=== PATIENT | female | born 1985 | race Caucasian/White ===

== ENCOUNTER 2016-12-06 17:19 | Emergency (ER) | payer OTHER ==
[~2016-12-06] VITALS: Ht 165.1 cm; Wt 96.0 kg
[~2016-12-06 17:19] MED LIST: ACET-2158 PO; PREN1TAB17 PO
[2016-12-06 17:21] VITALS: Ht 165.1 cm; Wt 96.0 kg
[2016-12-06] MEDS ORDERED: KETOROLAC 60 MG INJ IM STA (19:18)
[2016-12-06] MEDS ORDERED: ONDANSETRON 4 MG INJ ZFS STA (19:18)
[2016-12-06] MEDS ORDERED: DIPHENHYDRAMINE 50 MG INJ ZFS STA (19:18)
[2016-12-06 19:44] LABS: URINE BLOOD (Dip) POC Trace-lysed (NEGATIVE)
--- NOTE | 2016-12-06 21:25 | ERD ---
ER Documentation Chief Complaint Date/Time DATE: 12/06/16 TIME: 21:24 Chief Complaint DIZZINESS , RT SIDE HEADCAHE X 3 DAYS HPI This pleasant 31-year-old female presents with headache 3 days. Patient reports her head feels tingly, pain is on the right side, denies vision change, nausea, vomiting, photosensitivity, history of hypertension. Patient states she has had migraines in the past but this feels different. Patient reports she has had intermittent dizziness, denies any injury, sinus congestion, or change in vision. ROS All systems reviewed and are negative except as per history of present illness. Medications Home Meds Active Scripts Ibuprofen* (Motrin*) 400 Mg Tab, 400 MG PO Q6, #30 TAB Prov:LESLIEADITIBOSTON 12/06/16 Acetaminophen (TYLENOL 325 MG TAB) 325 Mg Tab, 650 MG PO Q4H Y for ELEVATED TEMPERATURE, #30 TAB Prov:FLORESITA WILEY MD 03/27/14 Reported Medications Vit-Iron Fumarate-FA ( Tablet) 1 Each Tablet, 1 TAB PO DAILY, TAB 03/23/14 Allergies Allergies: Coded Allergies: No Known Allergies (Verified Allergy, Unknown, 03/23/14) PMhx/Soc Medical and Surgical Hx: pt denies Medical Hx History of Surgery: Yes (APPENDECTOMY ) Anesthesia Reaction: No Hx Alcohol Use: No Hx Substance Use: No Hx Tobacco Use: No Smoking Status: Never smoker Physical Exam Vitals Vitals stable, triage notes reviewed Physical Exam Const: No acute distress Head: Atraumatic Eyes: Normal Conjunctiva PERRLA, EOMI ENT: Bilateral tympanic membranes translucent, auditory canals are clear, nasal mucosa moist, pharynx pink. Neck: Full range of motion. Resp: Chest rise and fall symmetrically, clear to auscultation bilaterally no respiratory Cardio: Regular rate and rhythm, no murmurs, S1-S2, no S3-S4 Abd: Skin: Back: Ext: Neuro: Alert and oriented Face: EOMI, face and pharynx with normal sensation and function Motor: Normal strength throughout Sensation: Normal sensation throughout Speech: Normal Cerebel: Normal coordination Normal gait Normal finger to nose DTR: 2+ and symmetric upper/lower extremities Psych: Normal Mood and Affect Results 24 hrs Laboratory Tests Test 12/06/16 19:45 Bedside Urine pH (LAB) 6.0 Bedside Urine Protein (LAB) Negative Bedside Urine Glucose (UA) Negative Bedside Urine Ketones (LAB) Negative Bedside Urine Blood Trace-lysed Bedside Urine Nitrite (LAB) Negative Bedside Urine Leukocyte Esterase (L Trace Current Medications Medications (Trade) Dose Ordered Sig/Nguyen Route PRN Reason Start Time Stop Time Status Last Admin Dose Admin Ondansetron HCl (Zofran Inj) 4 mg ONCE STAT ZFS 12/06/16 19:18 12/06/16 19:22 DC 12/06/16 19:27 Ketorolac Tromethamine (Toradol) 15 mg ONCE STAT IM 12/06/16 19:18 12/06/16 19:22 DC 12/06/16 19:27 Diphenhydramine HCl (Benadryl) 25 mg ONCE STAT ZFS 12/06/16 19:18 12/06/16 19:22 DC 12/06/16 19:27 Procedures/MDM This 31-year-old female presents to the emergency department today with headache for 3 days, headache is described as pounding, intermittent, right- sided without complaint of change in vision, nausea vomiting, photosensitivity or history of hypertension. Patient has had migraine headaches in the past has used Imitrex. Patient reports she has not been seen by her primary care physician to get a new prescription. Intracranial bleed, or brain mass is not suspected, patient is neurologically stable without noted deficit. Patient likely has headache, plan to treat with Benadryl, Toradol, Zofran, and reevaluation. Patient remains in emergency department 90 minutes reevaluated with effective relief of headache. Patient will be discharged home with Motrin and instructed to follow-up with primary care physician for prescription of Imitrex. Return to emergency room for rebound headache. Any changes I feel the patient is stable for discharge at this time with outpatient management with primary care physician. I have discussed results, examination findings, the treatment plan with the patient and family present prior to discharge. Indications for emergent reevaluation, side effects of medication were also discussed. All questions were answered. Patient verbalizes understanding and agrees with plan of care. Departure Diagnosis: Primary Impression: Head ache Headache type: unspecified Headache chronicity pattern: unspecified pattern Intractability: not intractable Qualified Code: R51 - Nonintractable headache, unspecified chronicity pattern, unspecified headache type BOSTON NELSON December 06, 2016 21:25
[2016-12-06] MEDS ORDERED: IBUP400T22 PO (21:26)
[2016-12-06 22:01] VITALS: BP 118/77; PULSE 77; RESP 18; TEMP 98.2
== END 2016-12-06 22:03 | disposition home or self-care (01) ==
LOC: FTE 17:19
DX: R51 Headache (principal)
CPT/HCPCS: 81003; J1200; J1885; J2405; 96372; 96374